=== PATIENT | female | born 1975 | race Caucasian/White ===

== ENCOUNTER 2017-05-05 20:37 | Emergency (ER) | payer SELFPAY ==
[2017-05-05 20:49] VITALS: BP 119/89; PULSE 72; TEMP 97.6; BMI 22.1
--- NOTE | 2017-05-05 20:51 | PDOC ---
History of Present Illness - General Exam Limitations: No Limitations - History of Present Illness Initial Comments: 05/05/17 21:03 41 year old female, with a remote history of a stroke in the past, who presents to the emergency room s/p syncopal episode while visiting her in the ICU just prior to arrival to the emergency room. The patient explains that she has been stressed and not eating much. When she saw her in his current condition, she felt very overwhelmed and passed out. Denies head trauma. At this time, the patient appears sad and is crying, but she is consolable by her sister in law. The patients finger stick at presentation was 90. She denies any pain or weakness to her extremities. She denies headache. Denies chest pain, SOB. Denies fever, chills, nausea, vomiting, abdominal pain. Allergies: NKA <Jaylyn Steve - Last Filed: 05/05/17 21:03> - General History Source: Patient <Rubén Ramirez - Last Filed: 05/05/17 22:59> - General Chief Complaint: Syncope/Near Syncope Stated Complaint: Syncope/Near Syncope Time Seen by Provider: 05/05/17 20:49 Past History <Jaylyn Steve - Last Filed: 05/05/17 21:03> - Past Medical History Seizures: Yes - Suicide/Smoking/Psychosocial Hx Smoking Status: No Smoking History: Former smoker Have you smoked in the past 12 months: No Number of Cigarettes Smoked Daily: 0 Information on smoking cessation initiated: No Hx Alcohol Use: No Drug/Substance Use Hx: No <Rubén Ramirez - Last Filed: 05/05/17 22:59> - Past Medical History Allergies/Adverse Reactions: Allergies Allergy/AdvReac Type Severity Reaction Status Date / Time No Known Allergies Allergy Verified 05/05/17 20:45 Home Medications: Ambulatory Orders No Home Medications 0 dose .ROUTE UTDICT 08/21/12 Review of Systems - Review of Systems Able to Perform ROS?: Yes Comments:: 05/05/17 21:03 CONSTITUTIONAL: Absent: fever, no chills, no fatigue EYES: Absent: visual changes ENT: Absent: ear pain, no sore throat CARDIOVASCULAR: Absent: chest pain, no palpitations RESPIRATORY: Absent: cough, no SOB GI: Absent: abdominal pain, no nausea, no vomiting, no constipation, no diarrhea GENITOURINARY: Absent: dysuria, no frequency, no hematuria MUSCULOSKELETAL: Absent: back pain, no arthralgia, no myalgia SKIN: Absent: rash NEURO: Present: +syncopal episode <Jaylyn Steve - Last Filed: 05/05/17 21:03> *Physical Exam - Vital Signs Last Vital Signs Temp Pulse Resp BP Pulse Ox 97.6 F 72 18 119/89 100 05/05/17 20:46 05/05/17 20:46 05/05/17 20:46 05/05/17 20:46 05/05/17 20:46 - Physical Exam Comments: 05/05/17 21:03 GENERAL: Well-appearing, well-nourished. No apparent distress. HEENT: Normocephalic, atraumatic. PERRL, EOM intact. CARDIOVASCULAR: Normal S1, S2. Regular rate and rhythm. PULMONARY: Clear to auscultation bilaterally. ABDOMEN: Soft, non-distended, non-tender. EXTREMITIES: Normal ROM in all four extremities. No gross deformities. SKIN: Warm, dry. No rash NEUROLOGICAL: Alert, awake, appropriate. Cranial nerves 2-12 intact. No deficits to light touch and temperature in face, upper extremities and lower extremities. No motor deficits in the in face, upper extremities and lower extremities. Normoreflexic in the upper and lower extremities. Normal speech. Toes are downgoing bilaterally. Gait is normal without ataxia. <Bee Steveica - Last Filed: 05/05/17 21:03> - Vital Signs Last Vital Signs Temp Pulse Resp BP Pulse Ox 97.6 F 72 18 119/89 100 05/05/17 20:46 05/05/17 20:46 05/05/17 20:46 05/05/17 20:46 05/05/17 20:46 <Rubén Ramirez - Last Filed: 05/05/17 22:59> Medical Decision Making - Medical Decision Making 05/05/17 22:59 Dr. Ramirez: The scribe's documentation has been prepared under my direction and personally reviewed by me in its entirery. I confirm that the note above accurately reflects all work, treatment, procedures, and medical decision making performed by me. <Rubén Ramirez Filed: 05/05/17 22:59> *DC/Admit/Observation/Transfer - Attestations Scribe Attestion: 05/05/17 21:04 Documentation prepared by SAWYER Jerome, acting as medical cost consultant for Rubén Ramirez MD. <Jaylyn Steve - Last Filed: 05/05/17 21:03> - Discharge Dispostion Admit: No <Rubén Ramirez - Last Filed: 05/05/17 22:59> Diagnosis at time of Disposition: Fainting - Discharge Dispostion Disposition: HOME Condition at time of disposition: Stable - Patient Instructions Printed Discharge Instructions: DI for Syncope in Adults (Fainting) Additional Instructions: Please follow up with your doctor as soon as possible for re-evaluation. return if any problems
== END 2017-05-05 23:03 | disposition home or self-care (01) ==
LOC: JER 20:37
DX: R55 Syncope and collapse (principal)
CPT/HCPCS: 70450-TC; 84703; 99283-25

== ENCOUNTER 2020-02-08 12:11 | Inpatient (IN) | payer OTHER ==
[2020-02-08 12:17] VITALS: BMI 24.7
[2020-02-08] MEDS ORDERED: LACTATED RINGERS SOLUTION 1000 ML INFUS.BAG IV ONE (13:24)
[2020-02-08] MEDS ORDERED: morphine CARPU-JECT 4 MG/1 ML DISP.SYRIN IVPUSH ONE ×2 (13:24→14:10)
[2020-02-08] MEDS ORDERED: ACETAMINOPHEN 325 MG TABLET (FP) PO ONE (13:38)
--- NOTE | 2020-02-08 13:38 | PDOC ---
History of Present Illness - General Chief Complaint: Pain Stated Complaint: ABD PAIN Time Seen by Provider: 02/08/20 13:13 History Source: Patient, Family (Son at bedside.) - History of Present Illness Initial Comments: 44 y/o female presenting to [facility] ER complaining of worsening right flank versus right sided abdominal pain with nausea for the past four days. Worse with movement. Last BM was yesterday. Denies diarrhea, hematuria, or dysuria. Denies chest pain or SOB. S/p 3x . No h/o similar symptoms. Pt is predominantly Sammarinese speaking. Pts son assisted with some translation as requested by the pt. Past History - Medical History Allergies/Adverse Reactions: Allergies Allergy/AdvReac Type Severity Reaction Status Date / Time No Known Allergies Allergy Verified 02/08/20 12:17 Home Medications: Ambulatory Orders No Home Medications 0 dose .ROUTE UTDICT 08/21/12 Anemia: No Asthma: No Cancer: No Cardiac Disorders: No CVA: No COPD: No DVT: No Dementia: No Diabetes: No Dialysis: No GI Disorders: No Disorders: No HTN: No Hypercholesterolemia: No Kidney Stones: No Liver Disease: No Psychiatric Problems: No Seizures: Yes Thyroid Disease: No Lung CA: No - Surgical History Abdominal Surgery: Yes (S/P x3) - Reproductive History Is Patient Now?: No - Psycho-Social/Smoking History Smoking Status: No Smoking History: Never smoked Have you smoked in the past 12 months: No Number of Cigarettes Smoked Daily: 0 Information on smoking cessation initiated: No - Substance Abuse Hx (Audit-C & DAST Scrn) How often the patient has a drink containing alcohol: Never Score: In Men: 4 or > Positive; In Women: 3 or > Positive: 0 Screen Result (Pos requires Nsg. Audit-10AR): Negative In the last yr the pt used illegal drug/Rx for NonMed reason: No Score: Yes response is considered Positive: 0 Screen Result (Positive result requires Nsg. DAST-10): Negative Review of Systems - Review of Systems Able to Perform ROS?: Yes Comments:: 10 point review of systems completed. All systems negative except as noted above. *Physical Exam - Vital Signs Last Vital Signs Temp Pulse Resp BP Pulse Ox 100.7 F H 109 H 17 110/78 97 02/08/20 12:13 02/08/20 12:13 02/08/20 12:13 02/08/20 12:13 02/08/20 12:13 - Physical Exam Vital signs and nursing notes reviewed. Constitutional- Well-developed, well-nourished adult female in no acute distress but obvious discomfort. Found semi-fowlers on hospital hallway stretcher. Head- Normocephalic. No obvious external signs of trauma. Neck- Supple, trachea is midline. Cardiovascular / Chest- Borderline tachycardic rate. Radial pulse regular. Respiratory- Breathing unlabored. Speaking in multi-word responses without pausing. Gastrointestinal- abdomen is tender with grimace and mild guarding in R flank >RLQ > RUQ. Globally, abdomen is soft and non-distended. No pulsatile masses. No overlying skin lesions or obvious signs of trauma. Neuro- Alert and oriented x4. Moving all four extremities spontaneously. No facial asymmetry. No slurred speech. Skin- Warm and dry. Back- No midline lumbosacral tenderness. - No R or L CVA tenderness. Psych- Affect- appropriate. Mood- normal. Speech was non-labored, non- pressured. ED Treatment Course - LABORATORY CBC & Chemistry Diagram: 02/08/20 13:40 02/08/20 13:40 - RADIOLOGY Radiology Studies Ordered: Category Date Time Status ABDOMEN & PELVIS CT WITH CONTR [CT] Stat CT Scan 02/08/20 13:23 Ordered Medical Decision Making - Medical Decision Making 44 y/o female presenting with right flank versus right sided abdominal pain. Febrile at triage; given acetaminophen. Triage vitals remarkable for mild tachycardia without hypotension. Normoxic on room air. Physical exam as described above. DDx includes appendicitis, acute cystitis, nephrolithiasis, pyelonephritis, ectopic . CTAP revealed right renal hypodense focus. Discussed finding with radiologist Dr. Srinivasan. Did not believe the lesion was likely a renal abscess. Suggested non-emergent MRI. UA revealed nitrites, trace leukocyte esterase, and pyuria. Suspect likely acute pyelonephritis. Ordered Ceftraixone for abx coverage. Will admit the pt for further IV abx and pain management. 08 Feb 2020 18:56 PM Telephone discussion with resident Dr. Brown. Verbally appraised of the pts HPI, ED course, and current plan of management. Will admit pt to med/surg for attending Dr. Nice. Also discussed case with Dr. Nice in person. Requested an additional gram of Ceftraixone; ordered. Stated he will consult urology for further guidance on the renal mass versus cystic structure. Case discussed with ED Attending Dr. Brien Helms M.D., PGY3 Emergency Medicine Resident Discharge - Discharge Information Problems reviewed: Yes Clinical Impression/Diagnosis: Pyelonephritis, Intractable abdominal migraine Febrile Qualifiers: Fever type: due to other condition Qualified Code(s): R50.81 - Fever presenting with conditions classified elsewhere Condition: Stable - Admission Yes - Follow up/Referral - Patient Discharge Instructions - Post Discharge Activity
[2020-02-08] MEDS ORDERED: morphine SULFATE 4 MG/ML VIAL ONE ×2 (13:45→14:10)
[2020-02-08] MEDS ORDERED: ACETAMINOPHEN 325 MG TABLET (FP) ONE (13:45)
[2020-02-08 13:54] LABS: BASO % 0.4 % (0-2.0); EOS % 0.2 % (0-4.5); HEMATOCRIT 29.8 % (32.4-45.2); HEMOGLOBIN 9.4 GM/dL (10.7-15.3); LYMPH % 25.6 % (8-40); MCH 23.7 pg (25.7-33.7); MCHC 31.4 g/dl (32.0-36.0); MEAN CELL VOLUME 75.3 fl (80-96); MEAN PLT VOLUME 8.4 fl (7.5-11.1); MONO % 8.5 % (3.8-10.2); NEUT % 65.3 % (42.8-82.8); PLATELET COUNT 329 K/MM3 (134-434); RBC 3.95 M/mm3 (3.60-5.2); RDW 17.1 % (11.6-15.6)
[2020-02-08 13:57] LABS: EPI CELLS 7 /uL (0-25.1); HYALINE CASTS 0 /uL (0-3.1); PH,URINE 6.5 (5.0-8.0); URINE APPEARANCE CLEAR; URINE BACTERIA >9,000 /uL (0-1359); URINE BILIRUBIN NEGATIVE (NEGATIVE); URINE COLOR YELLOW; URINE GLUCOSE (UA) NEGATIVE (NEGATIVE); URINE KETONE NEGATIVE (NEGATIVE); URINE LEUK ESTERASE TRACE (NEGATIVE); URINE NITRITE POSITIVE (NEGATIVE); URINE PROTEIN NEGATIVE (NEGATIVE); URINE RBC 8 /uL (0-23.9); URINE UROBILINOGEN 0.2 mg/dL (0.2-1.0); URINE WBC 20 /uL (0-25.8)
[2020-02-08 13:58] LABS: HCG,QUALITATIVE URINE Negative
[2020-02-08] MEDS ORDERED: ONDANSETRON 4 MG/2 ML VIAL IVPUSH ONE (14:12)
[2020-02-08 14:28] LABS: ALBUMIN 3.3 g/dl (3.4-5.0); BILIRUBIN,TOTAL 0.2 mg/dL (0.2-1); BLOOD UREA NITROGEN 7.9 mg/dL (7-18); CALCIUM 9.1 mg/dL (8.5-10.1); CREATININE 0.6 mg/dL (0.55-1.3); POTASSIUM 3.8 mmol/L (3.5-5.1); TOT PROT 7.1 g/dl (6.4-8.2)
[2020-02-08] MEDS ORDERED: CEFTRIAXONE 1,000 MG in DEXTROSE 5%-WATER - 50 ML IVPB ONE ×2 (14:59→18:52)
--- NOTE | 2020-02-08 14:59 | PDOC ---
Documentation entered by Susi Cantu SCRIBE, acting as scribe for Rosalva Tesfaye MD. Rosalva Tesfaye MD: This documentation has been prepared by the Pepe mcmahon Xhesika, SCRIBE, under my direction and personally reviewed by me in its entirety. I confirm that the documentation accurately reflects all work, treatment, procedures, and medical decision making performed by me. Attending Attestation - Resident Resident Name: Chase Helms - HPI HPI: 02/08/20 13:34 The patient is a 44 year old female, with a significant past medical history of brain aneurysm (1990), past traumatic head injury, s/p craniotomy (1990) who presents to the emergency department with several days of R sided abdominal pain radiating to her R flank. Pt states her pain is severe, crampy, associated with fever and nausea, worse with movements. Pt states she had a normal BM yesterday. History is limited by pt's pain. She denies chest pain, headache and dizziness. She denies chills, vomit, diarrhea. She denies dysuria, frequency, urgency and hematuria. Allergies: NKDA - Physicial Exam PE: 02/08/20 14:55 Agree with resident exam. Gen: alert, uncomfortable. Abdomen: soft, non distended, + epigastric and R flank tenderness. - Medical Decision Making 02/08/20 14:55 Pt presents to the ED complaining of fever, flank and epigastric pain and nausea without vomiting. Differential includes pyleonephritis, infected stone, less likely biliary disease or appendicitis. Will give pain and nausea control, check labs and CT abdomen pelvis. Will reassess. UA shows evidence of infection. Will treat with antibiotics. Discharge - Discharge Information Problems reviewed: Yes Clinical Impression/Diagnosis: Pyelonephritis, Intractable abdominal migraine Febrile Qualifiers: Fever type: due to other condition Qualified Code(s): R50.81 - Fever presenting with conditions classified elsewhere Condition: Stable - Follow up/Referral - Patient Discharge Instructions - Post Discharge Activity
[2020-02-08] MEDS ORDERED: CEFTRIAXONE 1 GM/50 ML BAG ONE ×2 (16:07→19:25)
[2020-02-08] MEDS ORDERED: ONDANSETRON 4 MG/2 ML VIAL IVPUSH PRN (19:55)
--- NOTE | 2020-02-08 21:04 | PN ---
Teaching Attending Note Name of Resident: Erasmo Aranda ATTENDING PHYSICIAN STATEMENT I saw and evaluated the patient. I reviewed the resident's note and discussed the case with the resident. I agree with the resident's findings and plan as documented. SUBJECTIVE: Patient is a 44 year old woman with a PMH of Brain aneurysm (1990), Menorrhagia and Traumatic head injury (s/p craniotomy 1990) who presents to the ER with several days of right sided abdominal pain radiating to her right flank. Reports pain is severe, crampy, associated with fever and nausea and worse with movements. States she had a normal BM yesterday. She denies chest pain, headache, dizziness, chills, vomiting, diarrhea, dysuria, frequency, urgency and hematuria. Denies alcohol, tobacco or illicit drug use. No sick contacts or recent travels. Family history is unremarkable. OBJECTIVE: Alert Vital Signs Period Temp Pulse Resp BP Sys/Vaca Pulse Ox Last 24 Hr 98.2 F-100.7 F 72-109 17-19 110-126/68-78 97-100 HEENT: No Jaundice, eye redness or discharge, PERRLA, EOMI. Normocephalic, atraumatic. External ears are normal and hearing is grossly intact. No nasal discharge. Neck: Supple, nontender. No palpable adenopathy or thyromegaly. No JVD Chest: Good effort. Clear to auscultation and percussion. Heart: Regular. No S3, rub or murmur Abdomen: Not distended, soft, RLQ and flank tenderness and no HSM. No rebound or guarding. Normal bowel sounds. Ext: Peripheral pulses intact. No leg edema. Skin: Warm and dry. No petechiae, rash or ecchymosis. Neuro: Alert. Oriented x3. CN 2-12 grossly intact. Sensation grossly intact in all four extremities and DTR are symmetric. Psych: Appropriate mood and affect. Good insight. Home Medications Medication Instructions Recorded No Home Medications 0 dose .ROUTE UTDICT 08/21/12 Abnormal Lab Results 02/08/20 02/08/20 02/08/20 13:40 13:40 13:40 Hgb 9.4 L Hct 29.8 L MCV 75.3 L MCH 23.7 L MCHC 31.4 L RDW 17.1 H Chloride 108 H Anion Gap 6 L Albumin 3.3 L Ur Specific [place] 1.008 L Urine Blood 1+ H Urine Nitrite Positive H Current Medications Generic Name Dose Route Start Last Admin Trade Name Freq PRN Reason Stop Dose Admin Enoxaparin Sodium 40 mg 02/09/20 10:00 Lovenox - SQ DAILY [facility] Ceftriaxone Sodium 1 gm/ 50 mls @ 100 mls/hr 02/09/20 10:00 Dextrose IVPB DAILY [facility] Ondansetron HCl 4 mg 02/08/20 19:55 Zofran Injection IVPUSH Q6H PRN NAUSEA AND/OR VOMITING ASSESSMENT AND PLAN: 1. Sepsis due to right Pyelonephritis - CT scan of abdomen/pelvis with IV contrast shows right renal hypodense focus. Radiologist - Dr. Srinivasan -did not believe the lesion was likely a renal abscess. Suggested non-emergent MRI. Bilateral nonobstructing kidney stones noted. Got 2 gm Ceftriaxone in the ER. Will continue 1 gm qd and IV NS. Consult Oncology and Urology for renal mass. Consult [facility] [employer] [facility] for menorrhagia. Upon discharge refer to Nephrology for stone disease risk factor evaluation. Viral testing for COVID-19 ordered and patient placed on airborne, droplet and contact isolation. EKG shows sinus bradycardia at 57/minute and QTc [address]-T wave changes. Will continue comprehensive care for all of patients comorbid conditions. 2. Low MCV Anemia Likely due to menorrhagia, but will do basic anemia work up including serial stool guaiacs, reticulocyte count and iron studies. Consult GI. 3. DVT prophylaxis - Lovenox 40 mg SQ q 24 hours. 4. Advance directives - Full code
--- NOTE | 2020-02-08 21:20 | HP ---
CHIEF COMPLAINT: Right abdominal pain radiating to the right flank worsening over 3 days. PCP: Doesn't have a doctor HISTORY OF PRESENT ILLNESS: 44 year old female patient with past medical history that includes 1 time seizure on no seizure meds, brain aneurysm, traumatic head injury, Cholecystectomy, C-Sections x3, Craniotomy, and Tubal Ligation, who presented to the emergency room with 3 days of worsening right abdominal pain radiating to the right flank. The patient reports having similar pain for 5 days in July, where it self-resolved with Tylenol. She did not want to go to the emergency room in July because of COVID19. She has had fever/chills, but she denies any dysuria or urinary frequency. She has positive right CVA tenderness on exam. She also reports heavy menstrual bleeding of 5 to 6 days. She went through 3 pads today, but she can sometimes go through 10 to 20 pads a day with her menstrual bleeding. She is currently in her menstrual period. She denies ever being diagnosed with anemia in the past. She eats meat, but does not take any iron supplements. ER course was notable for: (1) ECG (sinus bradycardia, 57bpm, IA 140ms, QTc 414ms) (2) SIRS+ on admission (100.7F, 109bpm, 110/78, 17, 97% room air) (3) U/A+ (Nitrites positive, bacteria >9k, epithelial cells only 7) (4) CT A/P (2x1cm left renal upper pole hypodense focus - complex cyst vs solid neoplastic lesion. 4x3.4cm right renal lower pole probable complex cyst. 9.3x7.3x5.4cm left adnexal cyst. bilateral 2mm renal calculi. CBD dilated 1cm.) (5) Ceftriaxone 2gm in ED, 1 liter Lactated Ringers (6) Tylenol 650mg, Morphine 4mg x2, Zofran 4mg Recent Travel: Denies PAST MEDICAL HISTORY: 1 time seizure on no seizure meds, brain aneurysm, traumatic head injury PAST SURGICAL HISTORY: Cholecystectomy, C-Sections x3, Craniotomy, Tubal Ligation Social History: Smoking: Denies Alcohol: Rarely drinks/less than once a month Drugs: Denies Diet: Hamburger with fries, vegetables, denies taking any iron supplements Family History: Denies Allergies No Known Allergies Allergy (Verified 02/08/20 12:17) HOME MEDICATIONS: Home Medications Medication Instructions Recorded No Home Medications 0 dose .ROUTE UTDICT 08/21/12 REVIEW OF SYSTEMS CONSTITUTIONAL: fever/chills Absent: GASTROINTESTINAL: nausea, 1 episode of vomiting Absent: denies blood in stool GENITOURINARY: Absent: denies dysuria, denies urinary frequency HEMATOLOGIC/IMMUNOLOGIC: 5 to 6 days of menstrual bleeding of 10 to 20 pads soaked with blood daily Absent: PHYSICAL EXAMINATION Vital Signs - 24 hr 02/08/20 02/08/20 02/08/20 12:13 14:17 16:42 Temperature 100.7 F H 98.2 F Pulse Rate 109 H Pulse Rate [ 74 72 Left] Respiratory 17 19 Rate Blood Pressure 110/78 Blood Pressure 119/74 126/68 [Left] O2 Sat by Pulse 97 100 99 Oximetry (%) GENERAL: Awake, alert, and fully oriented, in no acute distress. HEAD: Normal with no signs of trauma. EYES: Pupils equal, round and reactive to light, extraocular movements intact, conjunctiva mildly pale. No lid lag. EARS, NOSE, THROAT: Ears normal, nares patent, oropharynx clear without exudates. Moist mucous membranes. NECK: Normal range of motion, supple without lymphadenopathy, JVD, or masses. LUNGS: Breath sounds equal, clear to auscultation bilaterally. No wheezes, and no crackles. HEART: Regular rate and rhythm, normal S1 and S2 without murmur, rub or gallop. ABDOMEN: Soft, tender to RUQ and RLQ, not distended, normoactive bowel sounds, no guarding, no rebound, no masses. MUSCULOSKELETAL: Normal range of motion at all joints. No bony deformities or tenderness. Positive Right CVA tenderness. UPPER EXTREMITIES: 2+ pulses, warm, well-perfused. No cyanosis. No clubbing. No peripheral edema. LOWER EXTREMITIES: 2+ pulses, warm, well-perfused. No calf tenderness. No peripheral edema. NEUROLOGICAL: Normal speech. PSYCHIATRIC: Cooperative. Good eye contact. Appropriate mood and affect. SKIN: Warm, dry, normal turgor, no rashes or lesions noted, capillary refill > 3 seconds. Laboratory Results - last 24 hr 02/08/20 02/08/20 02/08/20 13:40 13:40 13:40 WBC 6.0 RBC 3.95 Hgb 9.4 L Hct 29.8 L MCV 75.3 L MCH 23.7 L MCHC 31.4 L RDW 17.1 H Plt Count 329 MPV 8.4 D Absolute Neuts (auto) 3.9 Neutrophils % 65.3 D Lymphocytes % 25.6 D Monocytes % 8.5 Eosinophils % 0.2 D Basophils % 0.4 Nucleated RBC % 0 Sodium 140 Potassium 3.8 Chloride 108 H Carbon Dioxide 25 Anion Gap 6 L BUN 7.9 Creatinine 0.6 Est GFR (CKD-EPI)AfAm 130.30 Est GFR (CKD-EPI)NonAf 112.42 Random Glucose 83 Calcium 9.1 Total Bilirubin 0.2 AST 19 ALT 20 Alkaline Phosphatase 69 Total Protein 7.1 Albumin 3.3 L Lipase 104 Urine Color Yellow Urine Appearance Clear Urine pH 6.5 Ur Specific [place] 1.008 L Urine Protein Negative Urine Glucose (UA) Negative Urine Ketones Negative Urine Blood 1+ H Urine Nitrite Positive H Urine Bilirubin Negative Urine Urobilinogen 0.2 Ur Leukocyte Esterase Trace Urine WBC (Auto) 20 Urine RBC (Auto) 8 Urine Casts (Auto) 0 U Epithel Cells (Auto) 7 Urine Bacteria (Auto) >9,000 Urine HCG, Qual Negative ASSESSMENT/PLAN: 44 year old female patient with past medical history that includes 1 time seizure on no seizure meds, brain aneurysm, traumatic head injury, Cholecystectomy, C-Sections x3, Craniotomy, and Tubal Ligation, who presented to the emergency room with 3 days of worsening right abdominal pain radiating to the right flank. 1. Sepsis with Pyelonephritis - SIRS+ on admission (100.7F and 109bpm) - U/A positive, Positive right CVA tenderness - Ceftriaxone 2gm given in ED - Ceftriaxone 1gm QD - Normal Saline at 75 - Urology Consulted 2. Possible Renal Solid Neoplastic Lesion vs Complex Cyst - MRI with contrast - Oncology Consulted 3. Microcytic Anemia secondary to Heavy Menstrual Bleeding - Hgb 9.4, MCV 75.3 - Iron studies - ObGyn consulted #FEN - Normal Saline at 75. Monitoring Electrolytes. Regular Diet. DVT PPx - Lovenox SQ Family Medical History Family History: Denies Visit type - Emergency Visit Emergency Visit: Yes ED Registration Date: 02/08/20 Care time: The patient presented to the Emergency Department on the above date and was hospitalized for further evaluation of their emergent condition. - New Patient This patient is new to me today: Yes Date on this admission: 02/08/20 - Critical Care Critical Care patient: No ATTENDING PHYSICIAN STATEMENT I saw and evaluated the patient. I reviewed the resident's note and discussed the case with the resident. I agree with the resident's findings and plan as documented. SUBJECTIVE: OBJECTIVE: ASSESSMENT AND PLAN:
[2020-02-08] MEDS ORDERED: SODIUM CHLORIDE 1,000 ML IV SCH (21:30)
[2020-02-09 07:42] LABS: BLOOD UREA NITROGEN 6.1 mg/dL (7-18); CALCIUM 8.5 mg/dL (8.5-10.1); CREATININE 0.5 mg/dL (0.55-1.3); MAGNESIUM 2.3 mg/dL (1.8-2.4); POTASSIUM 3.7 mmol/L (3.5-5.1)
[2020-02-09 07:48] LABS: BASO % 0.4 % (0-2.0); EOS % 0.6 % (0-4.5); HEMATOCRIT 28.7 % (32.4-45.2); HEMOGLOBIN 8.9 GM/dL (10.7-15.3); MCH 23.6 pg (25.7-33.7); MCHC 31.1 g/dl (32.0-36.0); MEAN PLT VOLUME 9.2 fl (7.5-11.1); MONO % 9.5 % (3.8-10.2); NEUT % 62.5 % (42.8-82.8); PLATELET COUNT 296 K/MM3 (134-434); RBC 3.78 M/mm3 (3.60-5.2); RDW 17.5 % (11.6-15.6); WHITE BLOOD COUNT 6.8 K/mm3 (4.0-10.0)
--- NOTE | 2020-02-09 09:19 | EKG ---
Test Reason : Blood Pressure : / mmHG Vent. Rate : 057 BPM Atrial Rate : 057 BPM P-R Int : 140 ms QRS Dur : 094 ms QT Int : 426 ms P-R-T Axes : 060 056 048 degrees QTc Int : 414 ms SINUS BRADYCARDIA OTHERWISE NORMAL ECG WHEN COMPARED WITH ECG OF 10-FEB-2016 16:38, [place] INTERVAL HAS INCREASED Confirmed by SHERRIE WEAVER MD ([id number]) on 02/09/2020 9:19:20 AM Referred By: Confirmed By:SHERRIE WEAVER MD
[2020-02-09] MEDS ORDERED: CEFTRIAXONE 1 GM in DEXTROSE 5%-WATER - 50 ML IVPB SCH ×2 (10:00→10:30)
[2020-02-09] MEDS ORDERED: cefTRIAXone SODIUM 1 GM VIAL ONE (10:33)
[2020-02-09] MEDS ORDERED: DEXTROSE 5%-WATER - 50 ML IVPB ONE ×2 (10:33→10:49)
--- NOTE | 2020-02-09 10:35 | PN ---
Teaching Attending Note Name of Resident: Cristo Rutledge ATTENDING PHYSICIAN STATEMENT I saw and evaluated the patient. I reviewed the resident's note and discussed the case with the resident. I agree with the resident's findings and plan as documented. SUBJECTIVE: patient is feeling better with NAD, but continues to have less back pain c ontinue. OBJECTIVE: Vital Signs Temperature 98.4 F 02/09/20 05:53 Pulse Rate 61 02/09/20 05:53 Respiratory Rate 18 02/09/20 05:53 Blood Pressure 95/56 L 02/09/20 05:53 O2 Sat by Pulse Oximetry (%) 98 02/09/20 05:53 PE: per resident's note right CVa tenderness CBCD WBC 6.8 K/mm3 (4.0-10.0) 02/09/20 06:22 RBC 3.78 M/mm3 (3.60-5.2) 02/09/20 06:22 Hgb 8.9 GM/dL (10.7-15.3) L 02/09/20 06:22 Hct 28.7 % (32.4-45.2) L 02/09/20 06:22 MCV 76.0 fl (80-96) L 02/09/20 06:22 MCHC 31.1 g/dl (32.0-36.0) L 02/09/20 06:22 RDW 17.5 % (11.6-15.6) H 02/09/20 06:22 Plt Count 296 K/MM3 (134-434) 02/09/20 06:22 MPV 9.2 fl (7.5-11.1) 02/09/20 06:22 CMP Sodium 141 mmol/L (136-145) 02/09/20 06:22 Potassium 3.7 mmol/L (3.5-5.1) 02/09/20 06:22 Chloride 110 mmol/L (98-107) H 02/09/20 06:22 Carbon Dioxide 25 mmol/L (21-32) 02/09/20 06:22 Anion Gap 6 MMOL/L (8-16) L 02/09/20 06:22 BUN 6.1 mg/dL (7-18) L 02/09/20 06:22 Creatinine 0.5 mg/dL (0.55-1.3) L 02/09/20 06:22 Random Glucose 85 mg/dL (74-106) 02/09/20 06:22 Calcium 8.5 mg/dL (8.5-10.1) 02/09/20 06:22 Total Bilirubin 0.2 mg/dL (0.2-1) 02/08/20 13:40 AST 19 U/L (15-37) 02/08/20 13:40 ALT 20 U/L (13-61) 02/08/20 13:40 Alkaline Phosphatase 69 U/L (45-117) 02/08/20 13:40 Total Protein 7.1 g/dl (6.4-8.2) 02/08/20 13:40 Albumin 3.3 g/dl (3.4-5.0) L 02/08/20 13:40 Current Medications Generic Name Dose Route Start Last Admin Trade Name Freq PRN Reason Stop Dose Admin Enoxaparin Sodium 40 mg 02/09/20 10:00 Lovenox - SQ DAILY UMESH Sodium Chloride 1,000 mls @ 75 mls/hr 02/08/20 21:30 02/08/20 21:59 Normal Saline - IV 75 mls/hr ASDIR UMESH Administration Ceftriaxone Sodium 1 gm/ 50 mls @ 100 mls/hr 02/09/20 10:30 Dextrose IVPB DAILY UMESH Ondansetron HCl 4 mg 02/08/20 19:55 Zofran Injection IVPUSH Q6H PRN NAUSEA AND/OR VOMITING Home Medications Medication Instructions Recorded No Home Medications 0 dose .ROUTE UTDICT 08/21/12 Microbiology 02/08/20 13:40 Urine - Urine Clean Catch Urine Culture - Preliminary Lactose Fermenting Neg Bacilli EKG shows sinus bradycardia at 57/minute and QTc [address]-T wave changes ASSESSMENT AND PLAN: This patient is a 44yof with PMHx of Brain aneurysm (1990), Menorrhagia and Traumatic head injury (s/p craniotomy 1990) who presents to the ER with 4 dyas of right sided abdominal pain radiating to her right flank. #Sepsis due to right sided Pyelonephritis. CT scan of abdomen/pelvis with IV contrast shows right renal hypodense focus. Radiologist - Dr. Srinivasan -did not believe the lesion was likely a renal abscess. Suggested non-emergent MRI. # Bilateral nonobstructing kidney stones noted. Will continue 2gm rocephin daily , Urology and neprho consulted for renal mass. # menorrhagia. KEY RINGER is consulted by night team # microcytic Anemia Likely due to menorrhagia, follow h/h DVT prophylaxis - Lovenox 40 mg SQ q 24 hours.
[2020-02-09] MEDS: ENOXAPARIN NA (PORCINE) 40 MG/0.4 ML DISP.SYRIN SQ SCH (10:46)
[2020-02-09] MEDS: SODIUM CHLORIDE 1,000 ML IV SCH ×2 (10:48→16:57)
[2020-02-09] MEDS: CEFTRIAXONE 2 GM in DEXTROSE 5%-WATER - 50 ML IVPB SCH (10:49)
--- NOTE | 2020-02-09 13:53 | PN ---
Progress Note (short form) - Note Progress Note: ID CONSULT DICTATED R/O R PYELONEPHRITIS UTI R/O SEPSIS SECONDARY TO UTI AWAIT C/S CONTINUE EMPIRIC CEFTRIAXONE
--- NOTE | 2020-02-09 13:53 | CON.HO ---
Consult Consult Specialty:: Oncology Reason for Consultation:: Concern for possible renal mass - History of Present Illness Chief Complaint: Right Flank Pain History of Present Illness: 44F with seizure hx, Craniotomy s/p trauma, brain aneurysm presents with 3 days of worsening abd pain radiating to right flank as well as heavy menstrual bleeding of 5-6 days. She was found to be febrile and tachycardic on arrival to ER. UA positive for nitrites. CT a/p with a 2x1cm left renal upper pole hypodense focus; complex cyst vs solid neoplastic lesion, a 4x3.4 right renal lower pole probable complex cyst, 9.3x4cm lef adnexal cysts and b/l 2mm renal calculi. She was given ceftriaxone and admitted for pyelonephritis. Oncology consulted for renal upper pole hypodense focus. Of note patient was also found to have hb 8.9 with a ferritin 4.8. 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 Reproductive: Yes: Other (heavy menstrual bleeding) ...LMP: 02/08/20 ...: No - Alcohol/Substance Use Hx Alcohol Use: No - Smoking History Smoking history: Never smoked Have you smoked in the past 12 months: No Aproximately how many cigarettes per day: 0 Home Medications - Allergies Allergies/Adverse Reactions: Allergies Allergy/AdvReac Type Severity Reaction Status Date / Time No Known Allergies Allergy Verified 02/08/20 12:17 - Home Medications Home Medications: Ambulatory Orders No Home Medications 0 dose .ROUTE UTDICT 08/21/12 Review of Systems - Review of Systems Constitutional: reports: Chills, Fever, Lethargy Genitourinary: reports: Burning, Dysuria, Flank Pain, Frequency Musculoskeletal: reports: Back Pain Physical Exam Vital Signs: Vital Signs Temperature 98.7 F 02/09/20 13:47 Pulse Rate 71 02/09/20 13:47 Respiratory Rate 20 02/09/20 13:47 Blood Pressure 113/64 02/09/20 13:47 O2 Sat by Pulse Oximetry (%) 100 02/09/20 13:47 Constitutional: Yes: Well Nourished, No Distress Eyes: Yes: Conjunctiva Clear, EOM Intact Neck: Yes: WNL Cardiovascular: Yes: Regular Rate and Rhythm Respiratory: Yes: CTA Bilaterally Gastrointestinal: Yes: Soft, Tenderness Renal/: Yes: CVA Tenderness - Right, Menses Present Musculoskeletal: Yes: Back Pain Extremities: Yes: WNL Labs: CBC, BMP 02/09/20 06:22 02/09/20 06:22 Assessment/Plan 44 y F admitted for pyelonephritis found to have renal upper pole focus; cyst vs mass. Also with iron deficiency anemia -agree with MRI to better visualize the lesion -found to have iron deficiency anemia; recommend venofer 200mg IV x 3 doses (most likely 2/2 heavy menses) patient is to follow with [facility] outpatient -patient should also be discharged on Oral Iron Sulfate 325mg q daily
--- NOTE | 2020-02-09 15:13 | PN ---
Physical Exam: SUBJECTIVE: Patient seen and examined, spoken to via official pearl diver. Endorses flank pain, however denies any fever, chills, nausea, vomitting, or dysuria. Denies blood in urine. OBJECTIVE: Vital Signs Period Temp Pulse Resp BP Sys/Vaca Pulse Ox Last 24 Hr 97.7 F-99.0 F 54-89 16-20 95-126/54-76 98-100 GENERAL: The patient is awake, alert, and fully oriented, in no acute distress. HEAD: Normal with no signs of trauma. EYES: PERRL, extraocular movements intact, sclera anicteric, conjunctiva clear. No ptosis. NECK: Trachea midline, full range of motion, supple. LUNGS: Breath sounds equal, clear to auscultation bilaterally, no wheezes, no crackles, no accessory muscle use. HEART: Regular rate and rhythm, S1, S2 without murmur, rub or gallop. ABDOMEN: Tender abdomen, non-distended, non-peritonitic. CVA tenderness noted on R side EXTREMITIES: 2+ pulses, warm, well-perfused, no edema. NEUROLOGICAL: Normal speech, gait not observed. PSYCH: Normal mood, normal affect. SKIN: Warm, dry, normal turgor, no rashes or lesions noted Laboratory Results - last 24 hr CBC, BMP 02/09/20 06:22 02/09/20 06:22 Active Medications Generic Name Dose Route Start Last Admin Trade Name Freq PRN Reason Stop Dose Admin Enoxaparin Sodium 40 mg 02/09/20 10:00 02/09/20 10:46 Lovenox - SQ 40 mg DAILY UMESH Administration Sodium Chloride 1,000 mls @ 200 mls/hr 02/09/20 10:36 02/09/20 10:48 Normal Saline - IV 02/10/20 02:29 200 mls/hr ASDIR UMESH Administration Ceftriaxone Sodium 2 gm/ 50 mls @ 100 mls/hr 02/09/20 10:45 02/09/20 10:49 Dextrose IVPB 100 mls/hr DAILY UMESH Administration Ondansetron HCl 4 mg 02/08/20 19:55 Zofran Injection IVPUSH Q6H PRN NAUSEA AND/OR VOMITING ASSESSMENT/PLAN: 44 year old female patient with past medical history that includes 1 time seizure on no seizure meds, brain aneurysm, traumatic head injury, Chol ecystectomy, C-Sections x3, Craniotomy, and Tubal Ligation, who presented to the emergency room with 3 days of worsening right abdominal pain radiating to the right flank. CT Abdomen Pelvis: Status post cholecystectomy in comparison to a 2006 ultrasound exam. As on the 2006 ultrasound study the common bile duct is dilated with a 1 cm diameter. Also on CT there is mild intrahepatic biliary tract dilatation. No CT evidence of acute appendicitis. Bilateral nonobstructing 2 mm renal calculi. A nonspecific 2 x 1 cm left renal upper pole hypodense focus with indistinct borders is seen - ? representing a complex cyst versus a solid neoplastic lesion or infarct. Correlation with contrast-enhanced MRI is suggested. A 4 x 3.4 cm right renal lower pole mildly hypodense focus is noted probably representing a complex cyst and less likely a solid lesion. MRI evaluation is also suggested in this regard. A 9.3 x 7.3 x 5.4 cm left adnexal cystic structure is visualized. Sonographic correlation is suggested. Small to moderate midline supraumbilical hernia containing fat only EKG: Sinus Bradycardia, QTc 414 SEPSIS 2/2 RIGHT SIDED PYELONEPHRITIS -TMax 100.7 on Admission -Soft BPs ~100s -Blood & Urine Cultures Obtained -Initial Urine: LF GNB -Rocephin 2gm -ID Consulted: Recs appreciated NON-OBSTRUCTING RENAL MASSES (Cysts/Stones/Masses) -Urology Consulted -Outpatient MRI for better visualization of mass MICROCYTIC ANEMIA 2/2 MENORRHAGIA -Per Heme Onc: -recommend venofer 200mg IV x 3 doses -Iron Sulfate 325mg Daily upon DC -Follow outpatient [facility] [employer] [facility] -OBGYN Consulted FEN -NS @ 200 -Monitor BMP -Normal Diet -Zofran for Nausea Visit type - Emergency Visit Emergency Visit: No - New Patient This patient is new to me today: Yes Date on this admission: 02/09/20 - Critical Care Critical Care patient: No - Discharge Referral Referred to [facility] Med P.C[facility] No ATTENDING PHYSICIAN STATEMENT I saw and evaluated the patient. I reviewed the resident's note and discussed the case with the resident. I agree with the resident's findings and plan as documented. SUBJECTIVE: OBJECTIVE: ASSESSMENT AND PLAN:
[2020-02-09] MEDS ORDERED: IRON SUCROSE INJECTION 200 MG in SODIUM CHLORIDE 90 ML IVPB ONE (19:00)
--- NOTE | 2020-02-09 20:20 | CONS ---
DATE OF CONSULTATION: 02/09/2020 INFECTIOUS DISEASE CONSULTATION HISTORY OF PRESENT ILLNESS: The patient is a 44-year-old female who is evaluated for pyelonephritis. She presented to emergency room on February 08, 2020, with right-sided abdominal and flank pain and fever. She was evaluated in the emergency room where a CAT scan showed a nonobstructing renal stone in the right renal connecting system. In addition there was 2 cm x 1 cm low attenuation focus in the upper pole of the left kidney. She had a structure which appeared to be a complex cyst, less likely solid lesion involving the medial aspect of the right kidney. There was no evidence of hydronephrosis. In addition, there was a left adnexal cystic structure without associated tissue nodularity. She is found on physical examination to have right flank tenderness. Cultures were taken, empirically treated with ceftriaxone. At the present time, she complains of right flank pain. She denies any dysuria or hematuria. No associated fever or chills. PAST MEDICAL HISTORY: Positive for traumatic brain injury, brain aneurysm. PAST SURGICAL HISTORY: Status post craniotomy, cholecystectomy, section, tubal ligation. ALLERGIES: No known allergies. MEDICATION: Include: 1. Ceftriaxone 2 g IV piggyback daily. 2. Lovenox. 3. Tylenol. SOCIAL HISTORY: She resides in the community. Nonsmoker, nondrinker. LABORATORY DATA: White count 6.8, hematocrit 28.7, platelets 296. BUN 6, creatinine 0.5. Liver enzymes normal. Urinalysis 20 white cells. COVID-19 serology pending. Blood cultures pending. Urine culture preliminarily growing gram-negative kathi. PHYSICAL EXAMINATION: General: On exam, she is awake, she is out of bed in chair. She is eating lunch. She is in no acute distress. Vital signs: Temperature 98.7, blood pressure 113/64, pulse 71 regular, respirations 20 per minute. HEENT: Sclerae anicteric. Cardiovascular: Heart sounds S1, S2. Lungs: Clear. Abdomen: There is mild right CVA tenderness to palpation. No suprapubic tenderness. Extremities: Negative for edema. IMPRESSION: 1. Probable right pyelonephritis. 2. Urinary tract infection. Rule out sepsis secondary to urinary tract infection. 3. Complex renal cyst of unclear etiology. Await cultures. Continue empiric antibiotic coverage with ceftriaxone. Urology evaluation. Thank you for the kind referral. SHERRIE GONZALES M.D. NEAL/[id number]
[2020-02-09] MEDS ORDERED: ACETAMINOPHEN 325 MG TABLET (FP) PO ONE (22:36)
[2020-02-10 08:10] LABS: BASO % 0.7 % (0-2.0); EOS % 1.2 % (0-4.5); HEMATOCRIT 30.2 % (32.4-45.2); HEMOGLOBIN 9.5 GM/dL (10.7-15.3); LYMPH % 26.9 % (8-40); MCH 23.9 pg (25.7-33.7); MCHC 31.5 g/dl (32.0-36.0); MEAN CELL VOLUME 75.8 fl (80-96); MONO % 7.5 % (3.8-10.2); NEUT % 63.7 % (42.8-82.8); PLATELET COUNT 338 K/MM3 (134-434); RBC 3.99 M/mm3 (3.60-5.2); RDW 17.7 % (11.6-15.6); WHITE BLOOD COUNT 5.3 K/mm3 (4.0-10.0)
[2020-02-10 08:32] LABS: BLOOD UREA NITROGEN 5.8 mg/dL (7-18); CALCIUM 9.2 mg/dL (8.5-10.1); CREATININE 0.6 mg/dL (0.55-1.3); POTASSIUM 4.1 mmol/L (3.5-5.1)
[2020-02-10] MEDS ORDERED: DEXTROSE 5%-WATER - 50 ML IVPB ONE (09:47)
[2020-02-10] MEDS: ENOXAPARIN NA (PORCINE) 40 MG/0.4 ML DISP.SYRIN SQ SCH (09:53)
[2020-02-10] MEDS: CEFTRIAXONE 2 GM in DEXTROSE 5%-WATER - 50 ML IVPB SCH (09:54)
--- NOTE | 2020-02-10 09:58 | PN ---
Progress Note, Physician Chief Complaint: Patient remained afebrile - Current Medication List Current Medications: Active Medications Enoxaparin Sodium (Lovenox -) 40 mg SQ DAILY [facility] Last Admin: 02/09/20 10:46 Dose: 40 mg Documented by: Ceftriaxone Sodium 2 gm/ (Dextrose) 50 mls @ 100 mls/hr IVPB DAILY [facility] Last Admin: 02/09/20 10:49 Dose: 100 mls/hr Documented by: Iron Sucrose 200 mg/ Sodium (Chloride) 100 mls @ 100 mls/hr IVPB ONCE ONE Stop: 02/10/20 19:59 Iron Sucrose 200 mg/ Sodium (Chloride) 100 mls @ 100 mls/hr IVPB ONCE ONE Stop: 02/11/20 19:59 Ondansetron HCl (Zofran Injection) 4 mg IVPUSH Q6H PRN PRN Reason: NAUSEA AND/OR VOMITING Last Admin: 02/09/20 22:00 Dose: 4 mg Documented by: - Objective Vital Signs: Vital Signs Temperature 98.5 F 02/10/20 06:00 Pulse Rate 54 L 02/10/20 06:00 Respiratory Rate 16 02/10/20 06:00 Blood Pressure 108/69 02/10/20 06:00 O2 Sat by Pulse Oximetry (%) 99 02/10/20 06:00 General: Young woman, comfortable, not in distress HEENT mucous membranes moist, + anemia, no jaundice, PERRLA, no nystagmus Neck: No JVD, supple, no bruit, thyroid palpably normal, normal carotid pulsations. Chest: Nontender, clear to auscultation bilaterally CVS: S1-S2 regular no murmur/gallop/rub Abdomen: Nondistended, soft, bowel sounds present. Extremities: No edema., No Calf tenderness, pulses present RANGE MOUNTER: AO X3 , no gross motor sensory deficit Labs: CBC, BMP 02/10/20 07:00 02/10/20 07:00 Problem List - Problems (1) Pyelonephritis Assessment/Plan: Urine culture grew pansensitice Ecolli will switch to po ciprofloxacin,for 7 days Problems reviewed: Yes Code(s): N12 - TUBULO-INTERSTITIAL NEPHRITIS, NOT SPCF ACUTE OR CHRONIC (2) Microcytic anemia Assessment/Plan: Due to blood loss secondary to menorrhagia H&H are stable. Problems reviewed: Yes Code(s): D50.9 - IRON DEFICIENCY ANEMIA, UNSPECIFIED
--- NOTE | 2020-02-10 15:36 | PN ---
Progress Note (short form) - Note Progress Note: Patient seen in follow up. No complaints today. Mild R flank pain No events overnight. Meds reviewed. Current Medications Generic Name Dose Route Start Last Admin Trade Name Frerod PRN Reason Stop Dose Admin Enoxaparin Sodium 40 mg 02/09/20 10:00 02/10/20 09:53 Lovenox - SQ 40 mg DAILY UMESH Administration Ceftriaxone Sodium 2 gm/ 50 mls @ 100 mls/hr 02/09/20 10:45 02/10/20 09:54 Dextrose IVPB 100 mls/hr DAILY UMESH Administration Iron Sucrose 200 mg/ Sodium 100 mls @ 100 mls/hr 02/10/20 19:00 Chloride IVPB 02/10/20 19:59 ONCE ONE Iron Sucrose 200 mg/ Sodium 100 mls @ 100 mls/hr 02/11/20 19:00 Chloride IVPB 02/11/20 19:59 ONCE ONE Ondansetron HCl 4 mg 02/08/20 19:55 02/09/20 22:00 Zofran Injection IVPUSH 4 mg Q6H PRN Administration NAUSEA AND/OR VOMITING On exam: Last Vital Signs Temp Pulse Resp BP Pulse Ox 98.9 F 70 18 113/73 99 02/10/20 15:09 02/10/20 15:09 02/10/20 15:02/10/20 15:09 02/10/20 15:09 General:Mobile, at bedside Chest: breathing comfortably Abdomen: Soft, no organomegaly, no masses. CVS: no pedal edema Neuro: Alert, oriented, non-focal. Labs reviewed: CBC, BMP 02/10/20 07:00 02/10/20 07:00 Assessment. UTI, with symptoms now resolved on Abics. Mild iron deficiency anemia secondary to menorrhagia - iron deficit being repleted intravenously while admitted. Suspicious lesion noted upper pole L kidney, on CT scan, with malignancy included in differential. MRI had been recommended. Subsequent addendum from radiology admits to possibility of lesion being 'on the basis of focal pyelonephritis'. (Symptoms on contralateral side though.) Awaiting MRI.
[2020-02-10] MEDS ORDERED: ACETAMINOPHEN 325 MG TABLET (FP) PO PRN (16:10)
[2020-02-10] MEDS ORDERED: IRON SUCROSE INJECTION 200 MG in SODIUM CHLORIDE 90 ML IVPB ONE (19:00)
[2020-02-11] MEDS ORDERED: DEXTROSE 5%-WATER - 50 ML IVPB ONE (08:52)
--- NOTE | 2020-02-11 09:28 | PN ---
Teaching Attending Note Name of Resident: Libertad Venegas ATTENDING PHYSICIAN STATEMENT I saw and evaluated the patient. I reviewed the resident's note and discussed the case with the resident. I agree with the resident's findings and plan as documented. SUBJECTIVE: OBJECTIVE: Vital Signs Temperature 98.9 F 02/11/20 05:35 Pulse Rate 63 02/11/20 05:35 Respiratory Rate 02/11/20 05:35 Blood Pressure 118/75 02/11/20 05:35 O2 Sat by Pulse Oximetry (%) 99 02/10/20 21:41 General: Young woman, comfortable, not in distress HEENT mucous membranes moist, + anemia, no jaundice, PERRLA, no nystagmus Neck: No JVD, supple, no bruit, thyroid palpably normal, normal carotid pulsations. Chest: Nontender, clear to auscultation bilaterally CVS: S1-S2 regular no murmur/gallop/rub Abdomen: Nondistended, soft, bowel sounds present. Extremities: No edema., No Calf tenderness, pulses present CREDIT COLLECTION ASSOCIATE: AO X3 , no gross motor sensory deficit CBC, BMP 02/10/20 07:00 02/10/20 07:00 ASSESSMENT AND PLAN: 44-year-old female history of pulmonary admitted with flank pain fever chills work-up shows UTI CT abdomen shows hyperdense complex cystn Suspicious lesion noted upper pole L kidney, on CT scan, with malignancy inclu ded in differential. MRI had been recommended. Subsequent addendum from radiology admits to possibility of lesion being 'on the basis of focal pyelonephritis'm, radiology recommended outpatient work-up if indicated, patient is educated to follow-up in primary care clinic for subsequent imaging, inpa tient MRI is not approved by radiology Plan of care: Discussed with the patient about further evaluation of the cyst suspected cyst in the kidney and outpatient follow-up in community clinic at [facility], also educated patient about hematuria, weight loss, fever chills come to ED, switch to p.o. antibiotic for 7 days and p.o. iron patient can be discharged home as planned. Discussed with The resident agreeable to plan of care. : Problem List - Problems (1) Pyelonephritis Assessment/Plan: Urine culture grew pansensitice Ecolli will switch to po ciprofloxacin,for 7 days Code(s): N12 - TUBULO-INTERSTITIAL NEPHRITIS, NOT SPCF ACUTE OR CHRONIC (2) Microcytic anemia Assessment/Plan: Due to blood loss secondary to menorrhagia H&H are stable. Code(s): D50.9 - IRON DEFICIENCY ANEMIA, UNSPECIFIED (3) Renal cyst Assessment/Plan: Suspicious lesion noted upper pole L kidney, on CT scan, with malignancy included in differential. MRI had been recommended. Subsequent addendum from radiology admits to possibility of lesion being 'on the basis of focal pyelonephritis'. Recommended outpatient follow-up Problems reviewed: Yes Code(s): N28.1 - CYST OF KIDNEY, ACQUIRED
[2020-02-11] MEDS: ENOXAPARIN NA (PORCINE) 40 MG/0.4 ML DISP.SYRIN SQ SCH (10:08)
[2020-02-11] MEDS: CEFTRIAXONE 2 GM in DEXTROSE 5%-WATER - 50 ML IVPB SCH (10:08)
[2020-02-11 12:08] VITALS: BP 119/73; PULSE 60; TEMP 98.7
--- NOTE | 2020-02-11 13:00 | DS ---
Physical Exam: SUBJECTIVE: Patient seen and examined. No acute events overnight. Right flank pain improved. OBJECTIVE: Vital Signs Period Temp Pulse Resp BP Sys/Vaca Pulse Ox Last 24 Hr 98.7 F-98.9 F 53-70 17-20 112-121/70-75 99-99 PHYSICAL EXAM GENERAL: AAOX3, in no acute distress. LUNGS: CTABL, no wheezes, no crackles, no accessory muscle use. CV: RRR, S1, S2 without m/r/g ABDOMEN: Soft, nontender, nondistended, normoactive bowel sounds, no guarding, no rebound, no hepatosplenomegaly, no masses. EXTREMITIES: 2+ pulses, warm, well-perfused, no edema. NEUROLOGICAL: Cranial nerves II through XII grossly intact. PSYCH: Normal mood, normal affect. SKIN: No rashes or lesions noted. LABS HOSPITAL COURSE: 44 y.o. F PMH 1 time seizure on no seizure meds, brain aneurysm, traumatic head injury, cholecystectomy, C-Sections x3, craniotomy, and tubal ligation, who presented to the emergency room with 3 days of worsening right abdominal pain radiating to the right flank. Admitted for sepsis 2/2 gallo-sensitive E. Coli UTI. Was treated with 3 days IV rocephin (sent home with 7 day course 500mg BID ciprofloxacin). While here patient had CT A/P showing a lesion on L renal upper pole (however an imaging addendum was noted that this lesion could be on the basis of focal pyelonephritis); however, could not rule out malignancy. Findings were suspicious as patient's presenting symptoms were RIGHT sided, although imaging findings suggested a left sided lesion. MRI was suggested however patients insurance did not cover inpatient MRI. Patient was evaluated by heme/onc while inpatient, recommended outpatient MRI abdomen for further evaluation of nonspecific renal pole lesion. Patient has been recommended to follow up with heme/ onc as outpatient. Date of Admission:02/08/20 * CT Abd/pel w/ contrast 02/07: No definite CT findings of acute pathology are identified. Status post cholecystectomy in comparison to a 2006 ultrasound exam. As on the 2006 ultrasound study the common bile duct is dilated with a 1 cm diameter. Also on CT there is mild intrahepatic biliary tract dilatation. No CT evidence of acute appendicitis. Bilateral nonobstructing 2 mm renal calculi. A nonspecific 2 x 1 cm left renal upper pole hypodense focus with indistinct borders is seen - ? representing a complex cyst versus a solid neoplastic lesion or infarct. Correlation with contrast-enhanced MRI is suggested. A 4 x 3.4 cm right renal lower pole mildly hypodense focus is noted probably representing a complex cyst and less likely a solid lesion. MRI evaluation is also suggested in this regard. A 9.3 x 7.3 x 5.4 cm left adnexal cystic structure is visualized. Sonographic correlation is suggested. Small to moderate midline supraumbilical hernia containing fat only. Date of Discharge: 02/11/20 Minutes to complete discharge: 36 Discharge Summary Problems reviewed: Yes Reason For Visit: FEVER PYELONEPHRITIS INTRACTABLE ABDOMINAL MIGRAIN Current Active Problems Febrile (Acute) Intractable abdominal migraine (Acute) Microcytic anemia (Acute) Pyelonephritis (Acute) Condition: Improved - Instructions Diet, Activity, Other Instructions: Your visit: You were admitted to the hospital for abdominal pain. You were found to have cysts in your kidneys and a urinary tract infection. You were treated with IV fluids and antibiotics with improvement of your symptoms. You were also found to be anemic; you were treated with IV iron infusions. Medications changes: -Please continue to take the antibiotic ciprofloxacin, 500mg pills. Take 1 pill 2 times per day (morning and night) with food and plenty of water. You will finish this medication in 7 days. -Take iron (ferrous sulfate) tablets, 325mg one tablet two times per day. -Continue to take all other home medications as prescribed. Follow up: -Follow-up with oncologist Dr. Sims in 1 week. It is very important you see this specialist as the cysts on your kidneys need to be worked up further. You will need an abdominal MRI. You may require additional bloodwork and a possible biopsy to rule out cancer. -ObGYn Dr. Adkins in 2 weeks. -Visit with your Primary Care Provider in 2 weeks. If you do not have a primary care provider you may make an appointment with Dr. Venegas at the [facility] clinic located at [address] [place] [address] ([phone]). Additional Instructions: -You are being discharged to your home. -Please return to the Emergency Department if you experience worsening pain, bleeding, fevers, chills, shortness of breath, or chest pain, or if you experience any worsening, new or concerning symptoms. Referrals: Lei Blackwell MD [Staff Physician] - 1 Week Ishaan Sims MD [Staff Physician] - 1 Week Donavan Adkins MD [Staff Physician] - 2 Weeks Disposition: HOME - Home Medications Comprehensive Discharge Medication List: Ambulatory Orders Ciprofloxacin [Cipro -] 500 mg PO Q12H 7 Days #14 tablet 02/10/20 Ferrous Sulfate [Iron] 325 mg PO BID 30 Days #60 tablet 02/10/20 This patient is new to me today: No Emergency Visit: No Critical Care patient: No - Discharge Referral Referred to [facility] No ATTENDING PHYSICIAN STATEMENT I saw and evaluated the patient. I reviewed the resident's note and discussed the case with the resident. I agree with the resident's findings and plan as documented. SUBJECTIVE: OBJECTIVE: ASSESSMENT AND PLAN:
--- NOTE | 2020-02-11 13:32 | PN ---
Progress Note (short form) - Note Progress Note: Patient seen in follow up. No complaints today. Mild R flank pain improved. No events overnight. Meds reviewed. Current Medications Generic Name Dose Route Start Last Admin Trade Name Freq PRN Reason Stop Dose Admin Acetaminophen 650 mg 02/10/20 16:10 02/10/20 17:12 Tylenol - PO 650 mg Q6H PRN Administration PAIN LEVEL 1-3 Enoxaparin Sodium 40 mg 02/09/20 10:00 02/11/20 10:08 Lovenox - SQ 40 mg DAILY UMESH Administration Ceftriaxone Sodium 2 gm/ 50 mls @ 100 mls/hr 02/09/20 10:45 02/11/20 10:08 Dextrose IVPB 100 mls/hr DAILY UMESH Administration Iron Sucrose 200 mg/ Sodium 100 mls @ 100 mls/hr 02/11/20 19:00 Chloride IVPB 02/11/20 19:59 ONCE ONE Ondansetron HCl 4 mg 02/08/20 19:55 02/09/20 22:00 Zofran Injection IVPUSH 4 mg Q6H PRN Administration NAUSEA AND/OR VOMITING On exam: Last Vital Signs Temp Pulse Resp BP Pulse Ox 98.7 F 60 20 119/73 99 02/11/20 11:00 02/11/20 11:00 02/11/20 11:00 02/11/20 11:00 02/11/20 11:00 General:Mobile, at bedside Chest: breathing comfortably Neuro: Alert, oriented, non-focal. Labs reviewed: CBC, BMP 02/10/20 07:00 02/10/20 07:00 Assessment. UTI, with symptoms now resolved on Abics. Mild iron deficiency anemia secondary to menorrhagia - iron deficit being re pleted intravenously while admitted. Suspicious lesion noted upper pole L kidney, on CT scan, with malignancy included in differential. MRI had been recommended. Subsequent addendum from radiology admits to possibility of lesion being 'on the basis of focal pyelonephritis'. (Symptoms on contralateral side though.) MRI as outpatient. Will follow with Dr Sims
[2020-02-11] MEDS ORDERED: IRON SUCROSE INJECTION 200 MG in SODIUM CHLORIDE 90 ML IVPB ONE (19:00)
== END 2020-02-11 13:34 | disposition home or self-care (01) | DRG 720 ==
LOC: JER 12:11 → JERBED 17:47 → J7W 22:20
PROVIDERS: ATTEND Internal Medicine
DX: A41.9 Sepsis, unspecified organism (principal); N12 Tubulo-interstitial nephritis, not specified as acute or chronic; D50.9 Iron deficiency anemia, unspecified; R50.81 Fever presenting with conditions classified elsewhere; N20.0 Calculus of kidney; N28.1 Cyst of kidney, acquired; R00.1 Bradycardia, unspecified
CPT/HCPCS: 36415; 74177-TC; 80048; 80053; 81003; 82728; 83540; 83550; 83690; 83735; 84100; 84703; 85025; 85045; 87040; 87086; 87186; 93005; 93010; 99285-25; J1756; Q9967; U0003

== ENCOUNTER 2020-05-03 12:08 | Emergency (ER) | payer OTHER ==
[2020-05-03 12:28] VITALS: TEMP 98.3; BMI 26.5
[2020-05-03] MEDS ORDERED: ALPRAZolam 1 MG TABLET PO PRN (13:16)
[2020-05-03 14:24] LABS: HEMATOCRIT 35.5 % (32.4-45.2); HEMOGLOBIN 11.5 GM/dL (10.7-15.3); MCH 27.2 pg (25.7-33.7); MCHC 32.3 g/dl (32.0-36.0); MEAN PLT VOLUME 8.3 fl (7.5-11.1); PLATELET COUNT 317 K/MM3 (134-434); RBC 4.23 M/mm3 (3.60-5.2); RDW 19.2 % (11.6-15.6); WHITE BLOOD COUNT 6.4 K/mm3 (4.0-10.0)
[2020-05-03 14:59] LABS: CHLORIDE 107 mmol/L (98-107); SODIUM 140 mmol/L (136-145)
[2020-05-03 15:02] LABS: ALBUMIN 3.5 g/dl (3.4-5.0); ANION GAP 8 MMOL/L (8-16); BLOOD UREA NITROGEN 8.9 mg/dL (7-18); CALCIUM 9.9 mg/dL (8.5-10.1); CO2 25 mmol/L (21-32); GLUCOSE,RANDOM 82 mg/dL (74-106)
[2020-05-03 15:05] LABS: SGOT/AST 18 U/L (15-37); SGPT/ALT 19 U/L (13-61)
[2020-05-03 15:06] LABS: CREATININE 0.5 mg/dL (0.55-1.3)
[2020-05-03 15:07] LABS: BILIRUBIN,TOTAL 0.2 mg/dL (0.2-1); TOT PROT 7.7 g/dl (6.4-8.2)
[2020-05-03 15:08] LABS: ALK PHOS 73 U/L (45-117)
[2020-05-03] MEDS ORDERED: ALPRAZolam 1 MG TABLET ONE (16:40)
[2020-05-03 16:55] VITALS: BP 117/85; PULSE 86
== END 2020-05-03 16:55 | disposition home or self-care (01) ==
LOC: JER 12:08
DX: F41.9 Anxiety disorder, unspecified (principal); R53.1 Weakness; F32.9 Major depressive disorder, single episode, unspecified
CPT/HCPCS: 36415; 70450-TC; 80053; 82550; 84484; 84703; 85027; 93005; 93010; 99284-25

== ENCOUNTER 2022-08-10 07:27 | Observation (INO) | payer OTHER ==
[2022-08-10 07:44] VITALS: BMI 23.8
[2022-08-10] MEDS ORDERED: FAMOTIDINE 20 MG/50 ML IVPB 20 MG/50 ML MG IVPB ONE ×2 (08:07→08:44)
[2022-08-10] MEDS ORDERED: ACETAMINOPHEN 1000 MG/100 ML BAG IVPB ONE (08:07)
[2022-08-10] MEDS ORDERED: ACETAMINOPHEN INJECTION 100 ML IVPB ONE (08:44)
[2022-08-10] MEDS ORDERED: SODIUM CHLORIDE 0.9% 500 ML INFUS.BAG IV ONE (08:45)
[2022-08-10 09:10] LABS: BASO % 0.6 % (0-2.0); EOS % 1.3 % (0-4.5); HEMATOCRIT 28.9 % (32.4-45.2); HEMOGLOBIN 8.7 GM/dL (10.7-15.3); LYMPH % 40.1 % (8-40); MCHC 30.2 g/dl (32.0-36.0); MEAN CELL VOLUME 69.6 fl (80-96); MEAN PLT VOLUME 8.5 fl (7.5-11.1); MONO % 6.5 % (3.8-10.2); NEUT % 51.5 % (42.8-82.8); PLATELET COUNT 388 10^3/uL (134-434); RBC 4.15 M/mm3 (3.60-5.2); RDW 19.3 % (11.6-15.6); WHITE BLOOD COUNT 4.7 K/mm3 (4.0-10.0)
[2022-08-10 09:17] LABS: EPI CELLS 24 /uL (0-25.1); HYALINE CASTS 1 /uL (0-3.1); PH,URINE 5.5 (5.0-8.0); URINE APPEARANCE CLEAR; URINE BACTERIA 1992 /uL (0-1359); URINE BILIRUBIN NEGATIVE (NEGATIVE); URINE COLOR YELLOW; URINE GLUCOSE (UA) NEGATIVE (NEGATIVE); URINE KETONE NEGATIVE (NEGATIVE); URINE LEUK ESTERASE 2+ (NEGATIVE); URINE NITRITE NEGATIVE (NEGATIVE); URINE PROTEIN NEGATIVE (NEGATIVE); URINE RBC 9 /uL (0-23.9); URINE UROBILINOGEN 0.2 mg/dL (0.2-1.0); URINE WBC 241 /uL (0-25.8)
[2022-08-10 09:23] LABS: CALCIUM 9.5 mg/dL (8.5-10.1)
[2022-08-10 09:24] LABS: ALBUMIN 3.3 g/dl (3.4-5.0); BLOOD UREA NITROGEN 16.1 mg/dL (7-18); MAGNESIUM 2.3 mg/dL (1.8-2.4)
[2022-08-10 09:27] LABS: CREATININE 0.5 mg/dL (0.55-1.3)
[2022-08-10 09:28] LABS: BILIRUBIN,TOTAL 0.2 mg/dL (0.2-1); TOT PROT 7.3 g/dl (6.4-8.2)
[2022-08-10] MEDS ORDERED: CEFTRIAXONE 1,000 MG in DEXTROSE 5%-WATER - 50 ML IVPB ONE (09:52)
[2022-08-10 09:56] LABS: ANISOCYTOSIS 3+; MACROCYTOSIS 0
[2022-08-10] MEDS ORDERED: CEFTRIAXONE 1 GM/50 ML BAG ONE (12:14)
[2022-08-10] MEDS: SODIUM CHLORIDE 1,000 ML IV SCH (15:39)
[2022-08-10] MEDS ORDERED: IRON SUCROSE INJECTION 200 MG in SODIUM CHLORIDE 90 ML IVPB ONE (17:01)
[2022-08-11 08:53] LABS: EOS % 2.2 % (0-4.5); HEMOGLOBIN 8.6 GM/dL (10.7-15.3); MCH 22.6 pg (25.7-33.7); MCHC 31.8 g/dl (32.0-36.0); MEAN CELL VOLUME 71.2 fl (80-96); MEAN PLT VOLUME 8.7 fl (7.5-11.1); MONO % 6.1 % (3.8-10.2); NEUT % 59.7 % (42.8-82.8); PLATELET COUNT 377 10^3/uL (134-434); RDW 18.4 % (11.6-15.6); WHITE BLOOD COUNT 3.6 K/mm3 (4.0-10.0)
[2022-08-11 09:27] LABS: ALBUMIN 3.1 g/dl (3.4-5.0); CALCIUM 9.4 mg/dL (8.5-10.1); MAGNESIUM 2.2 mg/dL (1.8-2.4)
[2022-08-11 09:28] LABS: BLOOD UREA NITROGEN 5.8 mg/dL (7-18)
[2022-08-11 09:30] LABS: PHOSPHOROUS 3.4 mg/dL (2.5-4.9)
[2022-08-11 09:31] LABS: CREATININE 0.5 mg/dL (0.55-1.3); TOT PROT 6.5 g/dl (6.4-8.2)
[2022-08-11 09:32] LABS: BILIRUBIN,TOTAL 0.3 mg/dL (0.2-1)
[2022-08-11] MEDS: CEFTRIAXONE 1 GM in DEXTROSE 5%-WATER - 50 ML IVPB SCH (09:58)
[2022-08-11] MEDS ORDERED: IRON SUCROSE INJECTION 200 MG in SODIUM CHLORIDE 90 ML IVPB ONE (10:00)
[2022-08-11] MEDS: SODIUM CHLORIDE 1,000 ML IV SCH (16:20)
[2022-08-12] MEDS: CEFTRIAXONE 1 GM in DEXTROSE 5%-WATER - 50 ML IVPB SCH (09:46)
[2022-08-12] MEDS ORDERED: IRON SUCROSE INJECTION 200 MG in SODIUM CHLORIDE 90 ML IVPB ONE (10:00)
[2022-08-12] MEDS ORDERED: BISACODYL 5 MG TABLET.DR (FP) PO ONE (16:00)
[2022-08-12] MEDS ORDERED: PEG 3350/NA SULF BICARB CL/KCL 4000 ML SOLN.RECON PO ONE (17:00)
[2022-08-12] MEDS: ACETAMINOPHEN 1000 MG/100 ML BAG IVPB PRN (21:23)
[2022-08-13] MEDS: CEFTRIAXONE 1 GM in DEXTROSE 5%-WATER - 50 ML IVPB SCH (09:26)
[2022-08-13 09:56] LABS: BASO % 0.7 % (0-2.0); EOS % 1.6 % (0-4.5); HEMATOCRIT 29.3 % (32.4-45.2); LYMPH % 27.3 % (8-40); MCH 21.4 pg (25.7-33.7); MCHC 30.8 g/dl (32.0-36.0); MEAN CELL VOLUME 69.3 fl (80-96); MEAN PLT VOLUME 8.3 fl (7.5-11.1); MONO % 6.7 % (3.8-10.2); NEUT % 63.7 % (42.8-82.8); PLATELET COUNT 350 10^3/uL (134-434); RBC 4.22 M/mm3 (3.60-5.2); WHITE BLOOD COUNT 5.8 K/mm3 (4.0-10.0)
[2022-08-13 10:24] LABS: CALCIUM 9.6 mg/dL (8.5-10.1)
[2022-08-13 10:25] LABS: ALBUMIN 3.3 g/dl (3.4-5.0); BLOOD UREA NITROGEN 11.6 mg/dL (7-18); MAGNESIUM 2.1 mg/dL (1.8-2.4)
[2022-08-13 10:28] LABS: CREATININE 0.6 mg/dL (0.55-1.3); PHOSPHOROUS 3.5 mg/dL (2.5-4.9)
[2022-08-13 10:29] LABS: TOT PROT 6.9 g/dl (6.4-8.2)
[2022-08-13 10:31] LABS: BILIRUBIN,TOTAL 0.2 mg/dL (0.2-1)
[2022-08-13 10:40] LABS: ANISOCYTOSIS 2+; MACROCYTOSIS 0; OVALOCYTE 2+; TARGET CELLS 2+; TEAR DROP CELLS 1+
[2022-08-14] MEDS: ACETAMINOPHEN 1000 MG/100 ML BAG IVPB PRN (06:11)
[2022-08-14 08:10] LABS: EOS % 1.7 % (0-4.5); HEMATOCRIT 28.6 % (32.4-45.2); LYMPH % 21.3 % (8-40); MCH 22.4 pg (25.7-33.7); MCHC 31.5 g/dl (32.0-36.0); MEAN CELL VOLUME 71.1 fl (80-96); MEAN PLT VOLUME 8.4 fl (7.5-11.1); MONO % 9.1 % (3.8-10.2); NEUT % 66.9 % (42.8-82.8); PLATELET COUNT 330 10^3/uL (134-434); RBC 4.03 M/mm3 (3.60-5.2); RDW 18.9 % (11.6-15.6); WHITE BLOOD COUNT 4.6 K/mm3 (4.0-10.0)
[2022-08-14 08:31] LABS: CALCIUM 9.4 mg/dL (8.5-10.1)
[2022-08-14 08:32] LABS: ALBUMIN 3.2 g/dl (3.4-5.0); BLOOD UREA NITROGEN 13.1 mg/dL (7-18); MAGNESIUM 1.9 mg/dL (1.8-2.4)
[2022-08-14 08:35] LABS: CREATININE 0.5 mg/dL (0.55-1.3); PHOSPHOROUS 3.4 mg/dL (2.5-4.9)
[2022-08-14 08:36] LABS: BILIRUBIN,TOTAL 0.3 mg/dL (0.2-1); TOT PROT 6.7 g/dl (6.4-8.2)
[2022-08-14 11:09] LABS: CARCINOEMBRYONIC ANTIGEN 0.7 ng/mL (0.0-4.7)
[2022-08-14] MEDS ORDERED: SODIUM CHLORIDE 500 ML IV STA (12:22)
[2022-08-15 08:41] LABS: BASO % 1.2 % (0-2.0); EOS % 1.9 % (0-4.5); HEMOGLOBIN 8.6 GM/dL (10.7-15.3); LYMPH % 37.7 % (8-40); MCH 22.4 pg (25.7-33.7); MCHC 31.9 g/dl (32.0-36.0); MEAN CELL VOLUME 70.2 fl (80-96); MEAN PLT VOLUME 8.3 fl (7.5-11.1); MONO % 16.5 % (3.8-10.2); NEUT % 42.7 % (42.8-82.8); PLATELET COUNT 294 10^3/uL (134-434); RBC 3.85 M/mm3 (3.60-5.2); RDW 18.8 % (11.6-15.6); WHITE BLOOD COUNT 3.4 K/mm3 (4.0-10.0)
[2022-08-15 09:14] LABS: ALBUMIN 3.1 g/dl (3.4-5.0); BLOOD UREA NITROGEN 8.3 mg/dL (7-18); MAGNESIUM 2.1 mg/dL (1.8-2.4)
[2022-08-15 09:17] LABS: CREATININE 0.5 mg/dL (0.55-1.3); PHOSPHOROUS 2.6 mg/dL (2.5-4.9)
[2022-08-15 09:19] LABS: BILIRUBIN,TOTAL 0.2 mg/dL (0.2-1); TOT PROT 6.6 g/dl (6.4-8.2)
[2022-08-15 10:47] VITALS: RESP 20
[2022-08-15] MEDS: ACETAMINOPHEN 1000 MG/100 ML BAG IVPB PRN (13:02)
[2022-08-15 13:46] VITALS: BP 117/74; PULSE 84; TEMP 98.3
== END 2022-08-15 17:48 | disposition home or self-care (01) ==
LOC: JER 07:27 → UNDOADMOB 12:05 → INTOOBSV 12:05 → JERBED 12:05 → J7W 22:43
PROVIDERS: ADMIT Internal Medicine; ATTEND Internal Medicine
PROC: 0DJ08ZZ Inspection of Upper Intestinal Tract, Via Natural or Artificial Opening Endoscopic (ICD-10-PCS; principal; 2022-08-10)
PROC: 3E03329 Introduction of Other Anti-infective into Peripheral Vein, Percutaneous Approach (ICD-10-PCS; 2022-08-10)
PROC: 3E033NZ Introduction of Analgesics, Hypnotics, Sedatives into Peripheral Vein, Percutaneous Approach (ICD-10-PCS; 2022-08-10)
PROC: 3E033GC Introduction of Other Therapeutic Substance into Peripheral Vein, Percutaneous Approach (ICD-10-PCS; 2022-08-10)
PROC: 3E0337Z Introduction of Electrolytic and Water Balance Substance into Peripheral Vein, Percutaneous Approach (ICD-10-PCS; 2022-08-10)
PROC: 0DJD8ZZ Inspection of Lower Intestinal Tract, Via Natural or Artificial Opening Endoscopic (ICD-10-PCS; 2022-08-10)
DX: R19.00 Intra-abdominal and pelvic swelling, mass and lump, unspecified site (principal); N83.209 Unspecified ovarian cyst, unspecified side; N39.0 Urinary tract infection, site not specified; R63.0 Anorexia; K59.00 Constipation, unspecified; R10.31 Right lower quadrant pain; D64.9 Anemia, unspecified; D64.89 Other specified anemias; D50.9 Iron deficiency anemia, unspecified; R11.0 Nausea; I67.1 Cerebral aneurysm, nonruptured; M35.04 Sjogren syndrome with tubulo-interstitial nephropathy; R56.9 Unspecified convulsions
CPT/HCPCS: 0241U-QW; 36415; 71250-TC; 72197-TC; 74177-TC; 74183-TC; 80053; 81003; 82378; 82728; 83540; 83550; 83605; 83690; 83735; 84100; 84443; 84703; 85025; 85045; 86301; 86304; 87086; 87186; 88305-TC; 88341-TC; 88342-TC; 93005; 93010; 96361; 96365; 96366; 96368; 96375; 96376; 99285-25; A9579; C9803-CS; G0378; J1756; U0003; U0005

== ENCOUNTER 2023-05-01 13:27 | Emergency (ER) | payer OTHER ==
[2023-05-01 14:02] VITALS: BMI 23.1
[2023-05-01] MEDS ORDERED: ACETAMINOPHEN 500 MG TABLET (FP) PO ONE (14:43)
[2023-05-01 15:07] LABS: HEMATOCRIT 32.4 % (32.4-45.2); MCH 24.6 pg (25.7-33.7); MCHC 30.8 g/dl (32.0-36.0); MEAN CELL VOLUME 79.7 fl (80-96); PLATELET COUNT 337 10^3/uL (134-434); RBC 4.06 M/mm3 (3.60-5.2); RDW 26.1 % (11.6-15.6); WHITE BLOOD COUNT 17.8 K/mm3 (4.0-10.0)
[2023-05-01] MEDS ORDERED: ACETAMINOPHEN 325 MG TABLET (FP) ONE (15:13)
[2023-05-01] MEDS ORDERED: PENICILLIN G BENZATHINE 1,200,000 UNIT/2 ML PFS IM ONE (15:17)
[2023-05-01 15:26] LABS: POTASSIUM 4.5 mmol/L (3.5-5.1)
[2023-05-01 15:28] LABS: CALCIUM 9.9 mg/dL (8.5-10.1)
[2023-05-01 15:29] LABS: ALBUMIN 3.5 g/dl (3.4-5.0); BLOOD UREA NITROGEN 10.2 mg/dL (7-18)
[2023-05-01 15:32] LABS: CREATININE 0.6 mg/dL (0.55-1.3)
[2023-05-01 15:33] LABS: BILIRUBIN,TOTAL 0.3 mg/dL (0.2-1); TOT PROT 7.4 g/dl (6.4-8.2)
[2023-05-01 15:49] LABS: ANISOCYTOSIS 3+; MACROCYTOSIS 0; OVALOCYTE 1+; TEAR DROP CELLS 1+
[2023-05-01 16:42] LABS: EPI CELLS 21 /uL (0-25.1); HYALINE CASTS 1 /uL (0-3.1); URINE APPEARANCE CLOUDY; URINE BACTERIA 442 /uL (0-1359); URINE BILIRUBIN NEGATIVE (NEGATIVE); URINE COLOR YELLOW; URINE GLUCOSE (UA) NEGATIVE (NEGATIVE); URINE KETONE NEGATIVE (NEGATIVE); URINE LEUK ESTERASE TRACE (NEGATIVE); URINE NITRITE NEGATIVE (NEGATIVE); URINE PROTEIN NEGATIVE (NEGATIVE); URINE RBC 10 /uL (0-23.9); URINE UROBILINOGEN 0.2 mg/dL (0.2-1.0); URINE WBC 62 /uL (0-25.8)
[2023-05-01 17:47] VITALS: BP 106/77; PULSE 62; RESP 16; TEMP 97.6
== END 2023-05-01 17:58 | disposition home or self-care (01) ==
LOC: JER 13:27
DX: R55 Syncope and collapse (principal); R51.9 Headache, unspecified; Z20.822 Contact with and (suspected) exposure to COVID-19
CPT/HCPCS: 0241U-QW; 36415; 71045-TC-FY; 80053; 81003; 82962; 84484; 84703; 85025; 87086; 87186; 93005; 93010; 99285-25